=== PATIENT | female | born 1945 | race Two or more races ===

== ENCOUNTER 2019-08-06 12:11 | Emergency (ER) | payer OTHER ==
[~2019-08-06] VITALS: Ht 162.6 cm; Wt 61.7 kg
[2019-08-06] MEDS ORDERED: NORVASC5 MG (12:24)
[2019-08-06] MEDS ORDERED: TENORMIN25 MG (12:24)
[2019-08-06] MEDS ORDERED: ASPIR 8181 MG (12:25)
== END 2019-08-06 14:29 | disposition home or self-care (01) ==
LOC: ER 12:11
DX: I73.89 Other specified peripheral vascular diseases (principal)